=== PATIENT | male | born 1940 | race Caucasian/White ===

== ENCOUNTER 2017-06-13 13:38 | Day surgery (SDC) | payer OTHER, BC ==
[2017-06-11 18:18] VITALS: BMI 29.7
[2017-06-13 14:14] VITALS: TEMP 98
[2017-06-13] MEDS ORDERED: PROPOFOL 20 ML ONE (14:57)
[2017-06-13] MEDS ORDERED: MIDAZOLAM HCL 2 MG/2 ML SINGLE DOSE VIAL ONE (15:05)
[2017-06-13] MEDS ORDERED: LIDOCAINE HCL 2% (20ML MULTI-DOSE VIAL) NR ONE (15:17)
[2017-06-13] MEDS ORDERED: LIDOCAINE HCL/PF 2% SDV 5ML VIAL ONE (15:19)
[2017-06-13] MEDS ORDERED: LIDOCAINE HCL/PF 2% SDV 5ML VIAL INF ONE (15:43)
[2017-06-13] MEDS ORDERED: ONDANSETRON 4 MG/2 ML VIAL IVPUSH PRN (15:55)
[2017-06-13] MEDS ORDERED: oxyCODONE HCL 5 MG TABLET PO PRN (15:55)
[2017-06-13] MEDS ORDERED: LACTATED RINGERS SOLUTION 1,000 ML IV SCH (16:00)
[2017-06-13 17:17] LABS: BASO % 1.1 % (0-2.0); LYMPH % 33.4 % (8-40); MCH 30.9 pg (25.7-33.7); MCHC 34.2 g/dl (32.0-35.9); MEAN CELL VOLUME 90.4 fl (80-96); MEAN PLT VOLUME 8.4 fl (7.5-11.1); MONO % 8.7 % (3.8-10.2); NEUT % 53.8 % (42.8-82.8); PLATELET COUNT 164 K/MM3 (134-434); RDW 13.2 % (11.9-15.9); WHITE BLOOD COUNT 6.1 K/mm3 (4.0-10.8)
[2017-06-13 17:24] LABS: ALBUMIN 3.5 g/dl (3.5-5.0); ALK PHOS 56 U/L (32-92); ANION GAP 3 (8-16); BILIRUBIN,TOTAL 0.8 mg/dl (0.2-1.0); BLOOD UREA NITROGEN 20 mg/dl (7-18); CALCIUM 8.6 mg/dl (8.4-10.2); CHLORIDE 110 mmol/L (98-107); CO2 21 mmol/L (22-28); CREATININE 1.1 mg/dl (0.6-1.3); GLUCOSE,RANDOM 105 mg/dl (74-106); POTASSIUM 4.8 mmol/L (3.5-5.1); SGOT/AST 25 U/L (10-42); SGPT/ALT 12 U/L (10-40); SODIUM 134 mmol/L (136-145); TOT PROT 5.7 g/dl (6.4-8.3)
[2017-06-13 18:27] VITALS: BP 140/81; PULSE 76
--- NOTE | 2017-06-14 16:42 | EKG ---
Test Reason : Blood Pressure : / mmHG Vent. Rate : 065 BPM Atrial Rate : 065 BPM P-R Int : 168 ms QRS Dur : 142 ms QT Int : 462 ms P-R-T Axes : 063 -65 039 degrees QTc Int : 480 ms NORMAL SINUS RHYTHM RIGHT BUNDLE BRANCH BLOCK LEFT ANTERIOR FASCICULAR BLOCK BIFASCICULAR BLOCK ABNORMAL ECG NO PREVIOUS ECGS AVAILABLE Confirmed by NICK CAMPA, ALESIA ([id number]) on 06/14/2017 4:42:36 PM Referred By: Dwayne Lindsay Confirmed By:ALESIA ROMERO MD
--- NOTE | 2017-06-15 08:34 | OP ---
DATE OF OPERATION: 06/13/2017 PREOPERATIVE DIAGNOSIS: 1. Left long trigger finger. 2. Left ring trigger finger. POSTOPERATIVE DIAGNOSIS: 1. Left long trigger finger. 2. Left ring trigger finger. PROCEDURE: 1. Left long trigger finger release 2. Left ring trigger finger release. ANESTHESIA: Local with sedation. COMPLICATIONS: None. ESTIMATED BLOOD LOSS: Minimal. INDICATION FOR PROCEDURE: The patient is a 76-year-old male with above findings and indicated for operative treatment. Risks, benefits, and alternatives were discussed with the patient at length and proper informed consent was obtained. Of note, in the office the patient was only complaining of a ring trigger finger and it was indicated in the office for that procedure. In the preoperative area, the patient also noted that over the last several weeks he started developing trigger finger in the left long finger. Physical examination was consistent with trigger finger and we discussed the options and alternative treatments and he desired to proceed with a trigger finger release on this finger as well. The risks, benefits, and alternatives to this procedure were again discussed and the cumulative effect of multiple incisions was also noted. He desired to proceed. PROCEDURE IN DETAIL: After proper identification of the patient and correct operative site, the patient was brought to the operating room and placed supine on the operative table and prominences well padded. Sedation was given by the anesthesiologist. Local anesthesia was given with 2% lidocaine. Left upper extremity was prepped and draped in the usual sterile fashion. Well-padded tourniquet was placed over a sterile cuff. Esmarch bandage was used to exsanguinate the left upper extremity and tourniquet inflated to 250 mmHg. A longitudinal incision was made over the A1 eben for the long finger and ring finger. Incisions were taken sharply through the skin with blunt and sharp dissection to the subcutaneous tissues. A1 pulleys were identified and the neurovascular structures were carefully protected. A1 pulleys were divided longitudinally. The patient was asked to flex and extend his fingers and no further triggering was noted. The wounds were irrigated with saline and repaired with 5-0 nylon suture. Sterile dressings were applied. The patient was reversed from any sedation and brought to the recovery room in stable condition. He tolerated the procedure well. Luke [id number]
== END 2017-06-13 18:36 | disposition home or self-care (01) ==
LOC: FASU 13:38
PROVIDERS: ATTEND Orthopaedic Surgery Hand Surgery
PROC: 0LN80ZZ Release Left Hand Tendon, Open Approach (ICD-10-PCS; 2017-06-13)
PROC: 0LN80ZZ Release Left Hand Tendon, Open Approach (ICD-10-PCS; principal; 2017-06-13 15:52)
DX: M65.342 Trigger finger, left ring finger (principal); M65.332 Trigger finger, left middle finger
CPT/HCPCS: 36415; 80053; 82550; 82962; 84484; 85025; 93005